=== PATIENT | female | born 1965 | race Caucasian/White ===

== ENCOUNTER 2018-03-26 15:29 | Emergency (ER) | payer OTHER, SELFPAY ==
[2018-03-26] VITALS (19 sets, daily range): BP systolic 118–159; BP diastolic 76–100; PULSE 59–74; RESP 13–23; TEMP 36.5; O2SAT 93–98
--- NOTE | 2018-03-26 17:24 | DI.RAD_ITS ---
SYMPTOMS/DIAGNOSIS: CHEST PAIN, PINCH CENTRAL EARLIER TODAY PA AND LATERAL CHEST: The heart is normal in size. The lungs are clear. The mediastinal structures and pleura appear intact. CONCLUSION: Normal chest.
[2018-03-26] MEDS: Normal Saline Flush 10 ML SYR IVP (17:42)
[2018-03-26 17:48] LABS: Abs Immature Grans 0.03 k/cumm (0.0-0.09); Absolute Basophil Count 0.03 k/cumm (0.0-0.2); Absolute Lymphocyte Count 2.91 k/cumm (1.2-3.4); Absolute Neutrophil Count 6.39 k/cumm (1.2-6.7); Basophils % 0.3; HGB 13.7 g/dL (12.0-15.5); Immature Grans % 0.3; Lymphocytes % 28.6; Mean Corp. HGB Concentration 34.3 g/dL (32.0-36.0); Mean Corpuscular Hemoglobin 30.7 pg (27.0-33.0); Mean Corpuscular Volume 89.7 fL (80-95); Mean Platelet Volume 9.5 fL (8.0-11.0); Monocytes % 5.9; Neutrophils % 62.9; Platelet Count 268 x1000/uL (130-400); RBC 4.46 m/cumm (4.00-5.20); RBC Distribution Width 14.7 % (11.7-14.6); White Blood Cell Count 10.16 k/cumm (4.4-10.8)
[2018-03-26 18:03] LABS: ALT 34 U/L (12-78); AST 22 U/L (15-37); Albumin 3.9 g/dL (3.4-5.0); Alkaline Phosphatase 78 U/L (46-116); Anion Gap 9.4 mmol/L (3-11); BUN 16 mg/dL (7-18); Bilirubin, Total 0.3 mg/dL (0.2-1.0); CO2 26.6 mmol/L (21.0-32.0); CREATININE 0.82 mg/dL (0.55-1.02); Calcium 9.4 mg/dL (8.5-10.1); Chloride 97 mmol/L (98-107); Glucose 82 mg/dL (70-100); Magnesium 1.9 mg/dL (1.8-2.4); Potassium 3.6 mmol/L (3.5-5.1); Sodium 133 mmol/L (136-145); Total Protein 8.1 g/dL (6.4-8.2)
[2018-03-26 18:08] LABS: Troponin I < 0.02 ng/mL (0.00-0.06)
[2018-03-26] MEDS: LORazepam 1 MG TAB PO (18:18)
--- NOTE | 2018-03-26 18:28 | DI.VRAD_ITS ---
EXAM: XR Chest, 2 Views EXAM DATE/TIME: 03/26/2018 5:26 PM CLINICAL HISTORY: 52 years old, female; Pain; Chest pain; Type not specified TECHNIQUE: XR of the chest, 2 views. COMPARISON: No relevant prior studies available. FINDINGS: Lungs: Unremarkable. No consolidation. Pleural space: Unremarkable. No pleural effusion. No pneumothorax. Heart/Mediastinum: Unremarkable. No cardiomegaly. Bones/joints: Unremarkable. IMPRESSION: No acute findings. Dictated and Authenticated by: Madhu Henao MD. Ordering:FLOR Mccord MD
--- NOTE | 2018-03-26 18:56 | ED.GENADUL_ITS ---
Discharge Plan Disposition Patient Disposition: HOME Discharge Details Chief Complaint: GenMedical Clinical Impression: Dental infection, Chest pain Reason For Visit: dental Primary Care Provider: Stacey,Local ED Provider: Flex Woodward Home Meds and New Rx's Prescriptions: New clindamycin HCl 150 mg capsule 450 mg PO TID Qty: 51 RF: 0 Continued levothyroxine 25 MCG tablet 112 mcg PO DAILY RF: 0 omeprazole [Prilosec] 20 MG capsule,delayed release(DR/EC) 20 mg PO DAILY RF: 0 fluoxetine [Prozac] 40 mg Capsule 40 mg PO DAILY AM RF: 0 acetaminophen [Tylenol] 325 mg Capsule 3 tab PO PRN PRNRF: 0 lorazepam 2 mg Tablet 2 mg PO PRN PRNRF: 0 Discharge Instructions Instructions: Clindamycin (By mouth), Chest Pain (ED), Toothache (ED) Additional Instructions: Please take the antibiotic as prescribed: 450 mg 3 times a day. Be sure to complete the full antibiotic course. Please follow-up with your dentist and primary care physician. You may need to have additional diagnostic testing including cardiac stress test. Call to arrange follow-up homero. Return to the ER for any worsening or new concerning symptoms. Discharge Data Discharge Date/Time-TO BE ENTERED AT DEPARTURE: 03/26/18 20:11 Medical Decision Making 18:50 --52-year-old female here with left upper incisor dental pain. No p alpable abscess. Dental decay noted. Suspect periapical abscess. She is a proximally 1 week status post left with some tooth extraction and site appears to be healing well. Patient also with recent brief episode of chest pain. Now asymptomatic. Hemodynamically stable. ECG was reviewed and interpreted by me: Normal sinus rhythm 69 bpm, normal axis, T wave inversion noted in lead III, no old for comparison. Chest x-ray reviewed and interpreted by radiology: No acute findings. Troponin negative. Advised outpatient follow-up and stress test. Patient to contact her PCP. Regarding dental pain. Plan to treat with clindamycin as patient has penicillin allergy. She will follow-up with her dentist later this week. Disposition decision was made weighing the risks and benefits of hospitalization versus outpatient treatment, the risk for further decompensation, and the patient's wishes. The patient was stable and requested discharge. Prior to discharge, my usual and customary return precautions were reviewed with the patient - this included follow-up instructions and reason to return to the emergency department if condition worsens, does not improve as expected, or other new concerns arise. HPI General Mode of arrival: ambulatory . Date/Time Provider Initiated Documentation: 03/26/18 16:49 . Limitations to Documentation: no limitations . Information obtained by: patient . HPI Narrative: 52-year-old female presents with chief complaint of dental pain. Patient notes that she had her left upper wisdom tooth extracted on 03/19/2018. Site has been healing well post extraction. She started to develop some left dental pain involving her left upper incisor a few days ago that has persisted. She has had pain in her left jaw that radiates to her ear. She is concerned about infection in her left upper incisor. Pain is worse on palpation. She has no associated sore throat. No fever. Patient has been feeling generally unwell over the past day and has had some intermittent nausea. She does note that she had a brief pinch of central chest pain this morning that occurred at rest and resolved. She had no recurrent episodes of chest pain and currently does not have chest pain. No associated shortness of breath. Related Data Home Medications Medication Instructions Recorded Confirmed levothyroxine 112 mcg PO DAILY 08/09/14 03/26/18 omeprazole [Prilosec] 20 mg PO DAILY 08/09/14 03/26/18 acetaminophen [Tylenol] 3 tab PO PRN PRN 03/26/18 03/26/18 clindamycin HCl 450 mg PO TID #51 cap 03/26/18 fluoxetine [Prozac] 40 mg PO DAILY AM 03/26/18 03/26/18 lorazepam 2 mg PO PRN PRN 03/26/18 03/26/18 Previous Rx's Medication Instructions Recorded clindamycin HCl 450 mg PO TID #51 cap 03/26/18 Allergies Allergy/AdvReac Type Severity Reaction Status Date / Time Penicillins Allergy Mild Hives Unverified 08/09/14 22:16 General Stated Complaint: GenMedical FANTASMA: 3 Review of Systems Review of Systems All systems reviewed & are unremarkable except as noted in HPI and below Constitutional Denies fever(s) ENT Reports as per HPI Cardiovascular Reports as per HPI Gastrointestinal Reports as per HPI and Denies abdominal pain Psychiatric Reports anxiety PFSH Social History Smoking/Tobacco Use Status: Current every day Exam Const General: cooperative and no acute distress HENMT Head: normocephalic and atraumatic Ears: hearing grossly normal bilaterally, TM's normal bilaterally and EAC's normal General nose exam: external nose normal Mouth: moist mucous membranes Teeth and gingiva: other (Dental caries with decay noted tooth #12, no abscess, mult teeth missing) Throat: posterior oropharynx normal Eyes Conjunctivae: normal conjunctivae Sclera: normal sclerae EOM: EOM intact bilaterally Neck Neck: no lymphadenopathy, trachea midline and supple Resp Auscultation: clear to auscultation bilaterally, no rales, no rhonchi and no wheezes Cardio Jugular venous pressure: no JVD Rate: regular rate and not tachycardic Rhythm: regular rhythm GI Palpation: soft, not firm, no guarding, no masses, not rigid and nontender Skin General skin exam: no rashes or lesions noted Neuro General: alert, awake, oriented x3 and tone normal Extrem General: no calf tenderness bilaterally and no edema Psych Appearance: grossly normal Mental Status: mental status grossly normal Speech and Movement: speech and movement normal Course Vital Signs Temperature 36.5 C 03/26/18 15:34 Pulse 74 03/26/18 15:34 Respiratory Rate 16 03/26/18 15:34 Blood Pressure 150/100 H 03/26/18 15:34 Pulse Oximetry 95 03/26/18 15:34 Temperature 36.5 C 03/26/18 15:34 Temperature Source Tympanic 03/26/18 15:34 Pulse 74 03/26/18 15:42 Respiratory Rate 16 03/26/18 15:42 Respiratory Effort 03/26/18 15:43 Blood Pressure 159/98 H 03/26/18 15:42 Blood Pressure Position Sitting 03/26/18 15:34 Pulse Oximetry 95 03/26/18 15:34 Oxygen Delivery Method Room Air 03/26/18 15:34 Oxygen Flow Rate 0 03/26/18 15:34 Pain Level 6 03/26/18 15:34
[2018-03-26] MEDS: Clindamycin 150 MG CAP 450 MG PO (19:00)
[2018-03-26] MEDS: Clindamycin 150 MG CAP 5400 MG PO (20:15)
--- NOTE | 2018-03-26 20:16 | NUR.NOTE ---
pt provided with 5400 mg of clindomyocin in 150mg pills as a take home med. Nursing Note:
== END 2018-03-26 20:11 | disposition home or self-care (01) ==
PROVIDERS: Emergency Provider Student in an Organized Health Care Education/Training Program
DX: R07.9 Chest pain, unspecified (principal); K08.89 Other specified disorders of teeth and supporting structures; F17.210 Nicotine dependence, cigarettes, uncomplicated
CPT/HCPCS: 36415; 80053; 93005; 99285; 71046; 83735; 84484; 85025; 93010